=== PATIENT | male | born 1980 | race Caucasian/White ===

== ENCOUNTER 2017-09-15 17:17 | Emergency (ER) | payer OTHER ==
--- NOTE | 2017-09-15 18:08 | ERPHSYRPT ---
- History of Present Illness Source: patient Exam Limitations: no limitations Patient Subjective Stated Complaint: pt reports brenda 5 hrs ago he began vomiting- denies pain-denies diarrhea-denies sob-states that this happens a few times a year-states that his pcp told him he has heartattacks-pt does not have a cardiaologist nor been hospitalized-pt denies any testing on stomach or gallbladder Triage Nursing Assessment: pt presents anxious-pale warm and dry-resp nonlabored -abd nontender to palp-bowel sounds present-radial pulse regular and strong-cap refill wnl Timing/Duration: today, hour(s) (5), sudden Severity: severe Modifying Factors: Improves With: nothing Associated Symptoms: nausea, vomiting Hx Tetanus, Diphtheria Vaccination/Date Given: No Hx Influenza Vaccination/Date Given: No Hx Pneumococcal Vaccination/Date Given: No Immunizations Up to Date: Yes <MEENAKSHI FOY - Last Filed: 09/15/17 18:49> <ELIO JIMENEZ - Last Filed: 09/15/17 20:39> - History of Present Illness Time Seen by Provider: 09/15/17 18:02 Physician History: The patient is a 36-year-old male who complains of onset of severe episode of vomiting that began around noon today (5 hours ago). Episodes of vomiting occur with this patient about twice a year. About one week ago the patient was sent to see his primary care doctor and was not feeling well. His doctor told him he was having a heart attack and should go to the ER. The patient went to work instead. Today he denies chest pain, shortness of breath, or sweating. He said when he began vomiting that he was vomiting "gallons". He also states that he is dizzy and that the room is spinning. He takes Vicodin for knee pain. He smoked marijuana yesterday but none today. (MEENAKSHI FOY) Allergies/Adverse Reactions: No Known Drug Allergies Allergy (Unverified 09/15/17 17:41) Home Medications: Hydrocodone/Acetaminophen [Hydrocodone-Acetamin 7.5-325] 1 tab PO UD 09/15/17 [ History] - Review of Systems Constitutional: No Fever, No Chills Eyes: No Symptoms Ears, Nose, & Throat: No Symptoms Respiratory: No Cough, No Dyspnea Cardiac: No Chest Pain, No Edema, No Syncope Abdominal/Gastrointestinal: Nausea, Vomiting, No Diarrhea Genitourinary Symptoms: No Dysuria Musculoskeletal: No Back Pain, No Neck Pain Skin: No Rash Neurological: No Dizziness, No Focal Weakness, No Sensory Changes Psychological: No Symptoms Endocrine: No Symptoms Hematologic/Lymphatic: No Symptoms Immunological/Allergic: No Symptoms All Other Systems: Reviewed and Negative <MEENAKSHI FOY - Last Filed: 09/15/17 18:49> - Past Medical History Pertinent Past Medical History: Yes Other Medical History: pain in knee - Past Surgical History Past Surgical History: No - Social History Smoking Status: Current every day smoker Drug Use: none Patient Lives Alone: No <MEENAKSHI FOY - Last Filed: 09/15/17 18:49> - Physical Exam General Appearance: moderate distress Eye Exam: PERRL/EOMI, eyes nml inspection Ears, Nose, Throat Exam: normal ENT inspection, TMs normal, pharynx normal, moist mucous membranes Neck Exam: normal inspection, non-tender, supple, full range of motion Respiratory Exam: normal breath sounds, lungs clear, No respiratory distress Cardiovascular Exam: regular rate/rhythm, normal heart sounds, normal peripheral pulses Gastrointestinal/Abdomen Exam: other (hyperactive BS) Rectal Exam: not done Back Exam: normal inspection, normal range of motion, No CVA tenderness, No vertebral tenderness Extremity Exam: normal inspection, normal range of motion, pelvis stable Neurologic Exam: alert, oriented x 3, cooperative, normal mood/affect, nml cerebellar function, nml station & gait, sensation nml, No motor deficits Skin Exam: normal color, warm, dry, No rash Lymphatic Exam: No adenopathy SpO2 Interpretation: normal SpO2: 96 Oxygen Delivery: Room Air <MEENAKSHI FOY - Last Filed: 09/15/17 18:49> - Nursing Vital Signs Nursing Vital Signs: Initial Vital Signs Temperature 97.9 F 09/15/17 17:28 Pulse Rate 73 09/15/17 17:28 Respiratory Rate 18 09/15/17 17:28 Blood Pressure 178/100 09/15/17 17:28 O2 Sat by Pulse Oximetry 96 09/15/17 17:28 Pain Scale Pain Intensity 6 - Course EKG Interpreted by Me: RATE, Sinus Rhythm, NORMAL AXIS, NORMAL INTERVALS, NORMAL QRS, NORMAL ST-T - Radiology Exams Chest X-ray Interpretation: Interpreted by me, Negative (neg AP chest) Abdomen X-ray Interpretation: Interpreted by me, Negative, Other (increased colonic fecal load.) <MEENAKSHI FOY - Last Filed: 09/15/17 18:49> Ordered Tests: Active Orders 24 hr Category Date Time Status EKG-ER Only STAT Care 09/15/17 18:12 Active IV Insertion STAT Care 09/15/17 18:12 Active ABDOMEN AND PELVIS W/0 CONTRAS [CT] Stat Exams 09/15/17 18:49 Taken OBSTR/ACUTE ABDOMEN SERIES Stat Exams 09/15/17 18:13 Taken CBC W DIFF Stat Lab 09/15/17 18:25 Completed CMP Stat Lab 09/15/17 18:25 Completed LIPASE Stat Lab 09/15/17 18:25 Completed Lactic Acid Stat Lab 09/15/17 18:20 Completed TROPONIN Q3H Lab 09/15/17 18:25 Completed TROPONIN Q3H Lab 09/15/17 21:15 Ordered TROPONIN Q3H Lab 09/16/17 00:15 Ordered TROPONIN Q3H Lab 09/16/17 03:15 Ordered TROPONIN Q3H Lab 09/16/17 06:15 Ordered UA W/RFX UR CULTURE Stat Lab 09/15/17 20:00 Completed Urine Triage Profile Stat Lab 09/15/17 20:00 Completed Medication Summary Discontinued Medications Generic Name Dose Route Start Last Admin Trade Name Freq PRN Reason Stop Dose Admin Famotidine 20 mg 09/15/17 18:12 09/15/17 18:17 Pepcid 20 Mg Vial IV 09/15/17 18:13 20 mg STAT ONE Administration Famotidine Confirm 09/15/17 18:16 Pepcid 20 Mg Vial Administered 09/15/17 18:17 Dose 20 mg IV .STK-MED ONE Sodium Chloride 1,000 mls @ 999 mls/hr 09/15/17 18:12 09/15/17 18:17 Sodium Chloride 0.9% 1000 Ml IV 09/15/17 19:12 999 mls/hr .Q1H1M STA Administration Sodium Chloride Confirm 09/15/17 18:16 Sodium Chloride 0.9% 1000 Ml Administered 09/15/17 18:17 Dose 1,000 mls @ ud .ROUTE .STK-MED ONE Ondansetron HCl 4 mg 09/15/17 18:12 09/15/17 18:17 Zofran 4 Mg/2 Ml Vial IV 09/15/17 18:13 4 mg STAT ONE Administration Ondansetron HCl Confirm 09/15/17 18:16 Zofran 4 Mg/2 Ml Vial Administered 09/15/17 18:17 Dose 4 mg .ROUTE .STK-MED ONE Pantoprazole Sodium Confirm 09/15/17 19:54 Protonix 40 Mg Iv Administered 09/15/17 19:55 Dose 40 mg IV .STK-MED ONE Pantoprazole Sodium 40 mg 09/15/17 19:57 09/15/17 19:59 Protonix 40 Mg Iv IV 09/15/17 19:58 40 mg STAT ONE Administration Promethazine HCl 12.5 mg 09/15/17 18:47 09/15/17 18:56 Phenergan 25 Mg Inj IV 09/15/17 18:48 12.5 mg STAT ONE Administration Promethazine HCl Confirm 09/15/17 18:54 Phenergan 25 Mg Inj Administered 09/15/17 18:55 Dose 25 mg .ROUTE .STK-MED ONE Lab/Rad Data: Laboratory Result Diagrams 09/15/17 18:25 09/15/17 18:25 Laboratory Results 09/15/17 09/15/17 09/15/17 Range/Units 20:00 20:00 18:25 WBC (4.0-10.5) K/mm3 RBC (4.1-5.6) M/mm3 Hgb (12.5-18.0) gm/dl Hct (42-50) % MCV (78-100) fl MCH (26-32) pg MCHC (32-36) g/dl RDW (11.5-14.0) % Plt Count (150-450) K/mm3 MPV (6-9.5) fl Gran % (36.0-66.0) % Lymphocytes % (24.0-44.0) % Monocytes % (0.0-12.0) % Eosinophils % (0.00-5.0) % Basophils % (0.0-0.4) % Basophils # (0-0.4) Sodium (136-145) mEq/L Potassium (3.5-5.1) mEq/L Chloride (98-107) mEq/L Carbon Dioxide (21-32) mEq/L Anion Gap (5-15) MEQ/L BUN (9-20) mg/dL Creatinine (0.55-1.30) mg/dl Estimated GFR ML/MIN Glucose (70-110) MG/DL Lactic Acid (0.4-2.0) Calcium (8.5-10.1) mg/dL Total Bilirubin (0.2-1.0) mg/dL AST (15-37) U/L ALT (12-78) U/L Alkaline Phosphatase (46-116) U/L Troponin I < 0.017 (0.000-0.056) ng/ml Serum Total Protein (6.4-8.2) gm/dL Albumin (3.4-5.0) g/dL Lipase (73-393) U/L Ur Collection Type CLEAN CATCH Urine Color YELLOW (YELLOW) Urine Appearance CLEAR (CLEAR) Urine pH 6.0 (5-6) Ur Specific [place] 1.020 (1.005-1.025) Urine Protein NEGATIVE (Negative) Urine Ketones NEGATIVE (NEGATIVE) Urine Blood NEGATIVE (0-5) Colin/ul Urine Nitrite NEGATIVE (NEGATIVE) Urine Bilirubin NEGATIVE (NEGATIVE) Urine Urobilinogen NORMAL (0-1) mg/dL Ur Leukocyte Esterase NEGATIVE (NEGATIVE) Urine Culture Reflexed NO (NO) Urine Glucose NEGATIVE (NEGATIVE) mg/dL Urine Opiates Level NEG. (NEGATIVE) Ur Methadone NEG. (NEGATIVE) Urine Barbiturates NEG. (NEGATIVE) Ur Phencyclidine (PCP) NEG. (NEGATIVE) Urine Amphetamine POS. (NEGATIVE) U Benzodiazepine Level POS. (NEGATIVE) Urine Cocaine NEG. (NEGATIVE) Urine Marijuana (THC) POS. (NEGATIVE) Specimen Received 09/15/17199909/15/17 09/15/17 09/15/17 Range/Units 18:25 18:25 18:20 WBC 8.4 (4.0-10.5) K/mm3 RBC 5.90 H (4.1-5.6) M/mm3 Hgb 17.3 (12.5-18.0) gm/dl Hct 51.2 H (42-50) % MCV 86.8 (78-100) fl MCH 29.3 (26-32) pg MCHC 33.8 (32-36) g/dl RDW 14.5 H (11.5-14.0) % Plt Count 249 (150-450) K/mm3 MPV 9.8 H (6-9.5) fl Gran % 81.1 H (36.0-66.0) % Lymphocytes % 13.4 L (24.0-44.0) % Monocytes % 4.8 (0.0-12.0) % Eosinophils % 0.5 (0.00-5.0) % Basophils % 0.2 (0.0-0.4) % Basophils # 0.02 (0-0.4) Sodium 141 (136-145) mEq/L Potassium 4.3 (3.5-5.1) mEq/L Chloride 104 (98-107) mEq/L Carbon Dioxide 26.1 (21-32) mEq/L Anion Gap 14.9 (5-15) MEQ/L BUN 11 (9-20) mg/dL Creatinine 1.11 (0.55-1.30) mg/dl Estimated GFR > 60 ML/MIN Glucose 120 H (70-110) MG/DL Lactic Acid 1.2 (0.4-2.0) Calcium 9.5 (8.5-10.1) mg/dL Total Bilirubin 0.40 (0.2-1.0) mg/dL AST 18 (15-37) U/L ALT 37 (12-78) U/L Alkaline Phosphatase 80 (46-116) U/L Troponin I (0.000-0.056) ng/ml Serum Total Protein 8.4 H (6.4-8.2) gm/dL Albumin 4.3 (3.4-5.0) g/dL Lipase 118 (73-393) U/L Ur Collection Type Urine Color (YELLOW) Urine Appearance (CLEAR) Urine pH (5-6) Ur Specific [place] (1.005-1.025) Urine Protein (Negative) Urine Ketones (NEGATIVE) Urine Blood (0-5) Colin/ul Urine Nitrite (NEGATIVE) Urine Bilirubin (NEGATIVE) Urine Urobilinogen (0-1) mg/dL Ur Leukocyte Esterase (NEGATIVE) Urine Culture Reflexed (NO) Urine Glucose (NEGATIVE) mg/dL Urine Opiates Level (NEGATIVE) Ur Methadone (NEGATIVE) Urine Barbiturates (NEGATIVE) Ur Phencyclidine (PCP) (NEGATIVE) Urine Amphetamine (NEGATIVE) U Benzodiazepine Level (NEGATIVE) Urine Cocaine (NEGATIVE) Urine Marijuana (THC) (NEGATIVE) Specimen Received <MEENAKSHI FOY - Last Filed: 09/15/17 18:49> - Progress Progress: unchanged, improved, pain not gone completely, re-examined (abdominal exam unremarkable, CT abdomen and pelvis no acute pathology) Counseled pt/family regarding: drug and/or alcohol abuse, lab results, diagnosis , need for follow-up, rad results <ELIO JIMENEZ - Last Filed: 09/15/17 20:39> - Progress Progress Note: 09/15/17 18:50 Pt care discussed and care transferred to Dr Jimenez at 19:00. (MEENAKSHI FOY) <MEENAKSHI FOY - Last Filed: 09/15/17 18:49> - Departure Time of Disposition: 20:27 Departure Disposition: Home Critical Care Time: Yes Critical Care Time(excluding separately billable procedures): 30-74 minutes <ELIO JIMENEZ - Last Filed: 09/15/17 20:39> - Departure Clinical Impression: Abdominal pain in male, Nausea and vomiting in adult Condition: Stable Referrals: JORDON CARABALLO [Primary Care Provider] - Instructions: Nausea -- Adult, Vomiting -- Adult Additional Instructions: ABDOMINAL PAIN 1. There are several different causes for abdominal pain, some of which may not be able to be identified on initial examination. 2. The important thing to remember is that bodily functions can change in a short period of time. If you notice any of the following symptoms, return to the emergency department or consult your doctor immediately: A. Worsening pain or no improvement in the next 12 hours. B. Increasing, severe abdominal pain C. Blood in stool D. Black stools E. Persistent vomiting F. Fever or chills or other symptoms ABBIECANDY L was seen on 09/15/17 n the Emergency Room. At that time you were treated for an emergent condition, during your visit Laboratory, Radiology and/or other procedures may have been ordered. It is very important that you follow-up with your Primary Care Physician JORDON CARABALLO within the next 24- 48 hours to review your Emergency Room visit and the final results of testing that was ordered. Some test results such as Urine Cultures, Blood Cultures, and other cultures if ordered will not be finalized for 24-48 hours. If you do not have a Primary Care Provider please call the medical records department at [phone] to obtain a copy of your results or you may sign into our patient portal to obtain these results by visiting us @ [email or web address] and completing the following steps: 1. Click on the Patient Portal link 2. Click the Patient Self Enrollment Link to complete the enrollment form and entering your 3. Once the enrollment form is completed you will receive an email with a temporary ID and password at the email address you provided. 4. Next choose a user name and password. Your user name must be at least 4 characters long and your password must be at least 4 characters long. 5. Choose a security question from the list and provide your answer to the question. If you already have signed into the Health Portal you may access your Health Care Information 05/02 by the following steps: 1. Login to our website @ [email or web address] 2. Enter your original user name and password. FAQS The [facility] Health Portal is an online tool that contains your Lab Results, Radiology Reports, Visit History, Discharge Instructions and Health Summary Lab and Radiology Results will not be available for 72 hours on the portal. The Portal is a secure site, passwords are encryted and URLs are re-written so they cannot be copied and pasted. You and authorized family members are the only ones who can access your Portal. Also there is a timeout feature that protects your information if you leave the Portal page open. If you have technical difficulty please use the Contact Us link on the page this will allow you to submit any questions you have regarding the Portal or you may contact the Medical Record Department at [phone]. Prescriptions: Promethazine HCl 25 mg [Phenergan 25 mg] 25 mg PO QID #20 tablet
[2017-09-15] MEDS ORDERED: Sodium Chloride 0.9% 1000 ML 1,000 ML IV STA (18:12)
[2017-09-15] MEDS ORDERED: Pepcid 20 MG VIAL IV ONE ×2 (18:12→18:16)
[2017-09-15] MEDS ORDERED: Zofran 4 MG/2 ML VIAL IV ONE (18:12)
[2017-09-15] MEDS ORDERED: Zofran 4 MG/2 ML VIAL ONE (18:16)
[2017-09-15] MEDS ORDERED: Sodium Chloride 0.9% 1000 ML 1,000 ML ONE (18:16)
[2017-09-15 18:39] LABS: BASOPHIL % 0.2 % (0.0-0.4); Basophil (Absolute #) 0.02 (0-0.4); Eosinophil % 0.5 % (0.00-5.0); Eosinophil (Absolute #) 0.04 (0-0.5); Granulocyte Absolute (ANC) 6.79 (1.4-6.9); Granulocytes % 81.1 % (36.0-66.0); Hematocrit 51.2 % (42-50); Hemoglobin 17.3 gm/dl (12.5-18.0); Lymphocyte (Absolute #) 1.12 (1.0-4.6); Lymphocytes % 13.4 % (24.0-44.0); Mean Cell Volume 86.8 fl (78-100); Mean Corpuscular Hemoglobin 29.3 pg (26-32); Mean Corpuscular Hgb Concent. 33.8 g/dl (32-36); Mean Platelet Volume 9.8 fl (6-9.5); Monocytes % 4.8 % (0.0-12.0); Platelet Count 249 K/mm3 (150-450); Red Cell Distribution Width 14.5 % (11.5-14.0); White Blood Count 8.4 K/mm3 (4.0-10.5)
[2017-09-15] MEDS ORDERED: Phenergan 25 MG INJ IV ONE (18:47)
[2017-09-15] MEDS ORDERED: Phenergan 25 MG INJ ONE (18:54)
[2017-09-15 19:01] LABS: ALBUMIN 4.3 g/dL (3.4-5.0); ALKALINE PHOSPHATASE 80 U/L (46-116); ANION GAP 14.9 MEQ/L (5-15); BLOOD UREA NITROGEN 11 mg/dL (9-20); CHLORIDE 104 mEq/L (98-107); Calcium 9.5 mg/dL (8.5-10.1); Carbon Dioxide 26.1 mEq/L (21-32); Creatinine 1 1.11 mg/dl (0.55-1.30); Glucose 120 MG/DL (70-110); LIPASE 118 U/L (73-393); Potassium 4.3 mEq/L (3.5-5.1); SGOT/AST 18 U/L (15-37); SGPT/ALT 37 U/L (12-78); SODIUM 141 mEq/L (136-145); Total Protein 8.4 gm/dL (6.4-8.2)
[2017-09-15] MEDS ORDERED: PROTONIX 40 MG IV IV ONE ×2 (19:54→19:57)
[2017-09-15 20:17] LABS: Appearance CLEAR (CLEAR); Bilirubin NEGATIVE (NEGATIVE); Blood NEGATIVE Ery/ul (0-5); Glucose NEGATIVE (NEGATIVE); Ketones NEGATIVE (NEGATIVE); Leukocyte Esterase NEGATIVE (NEGATIVE); Nitrite NEGATIVE (NEGATIVE); Protein,Urine Dip NEGATIVE (Negative); Urobilinogen NORMAL mg/dL (0-1)
[2017-09-15 20:19] LABS: Amphetamine,Urine POS. (NEGATIVE); Barbiturate,Urine NEG. (NEGATIVE); Benzodiazepine,Urine POS. (NEGATIVE); Cocaine,Urine NEG. (NEGATIVE); Methadone,Urine NEG. (NEGATIVE); Opiate,Urine NEG. (NEGATIVE); PCP,Urine NEG. (NEGATIVE); THC,Urine POS. (NEGATIVE)
[2017-09-15 20:44] VITALS: BP 147/80; PULSE 60; O2SAT 96
--- NOTE | 2017-09-15 21:21 | XRAY ---
Indication: Nausea, vomiting, and dizziness. Comparison: None 2 views of the abdomen nonacute and nonobstructed with mild scattered colonic fecal debris. Solid organs and osseous structures unremarkable. Single PA chest demonstrates normal heart, lungs, and bony thorax. Impression: Negative abdomen. Normal 1 view chest.
--- NOTE | 2017-09-15 21:25 | XRAY ---
Indication: Nausea, vomiting, cramping, and dizziness. Multiple contiguous axial images obtained through the abdomen and pelvis without contrast as ordered. Comparison: None Lung bases are clear. Heart is not enlarged. Stomach is moderately fluid distended. Noncontrasted stomach and bowel loops appear nonobstructed. Normal appendix. No free fluid/air. Mild scattered colonic fecal debris. Remaining liver, gallbladder, pancreas, spleen, adrenal glands, kidneys, ureters, bladder, and aorta appear unremarkable for noncontrast exam. Osseous structures intact. Moderate sized fatty umbilical hernia. Impression: 1. Mild fecal stasis without obstruction. 2. Fatty umbilical hernia. 3. No acute intra-abdominal/pelvic abnormalities on this noncontrast exam. Comment: Preliminary interpretation was made by [facility]. No discrepancy. CTDI 28.11
== END 2017-09-15 20:44 | disposition home or self-care (01) ==
LOC: ED 17:17
DX: R10.9 Unspecified abdominal pain (principal); R11.2 Nausea with vomiting, unspecified; M25.569 Pain in unspecified knee; Z72.0 Tobacco use
CPT/HCPCS: 36000; 36415; 74022; 74176; 80053; 80307; 81002; 83605; 83690; 84484; 85025; 93005; 96360; 96374; 96375; 99284; 99285; J2405; J2550